=== PATIENT | male | born 1950 | race Asian ===

== ENCOUNTER → 2025-02-12 | Outpatient (CLI) | payer MEDICAID, SELFPAY ==
--- NOTE | 2025-02-12 08:45 | XR_ITS ---
EXAMINATION: PET/CT FUSION SKULL TO THIGH EXAM DATE AND TIME: February 12, 2025 0956 hours INDICATIONS: Diagnosis solitary pulmonary nodule posttreatment restaging CTDI:vol (mGy) 2.1 DLP: (mGycm) 191.83 PROCEDURE: 16.7 mCi FDG was administered intravenously To allow for distribution and uptake of radiotracer, the patient was allowed to rest quietly in a shielded room. Imaging was performed on an integrated 16-slice PET/CT scanner, with scanning from the skull base to the mid thigh. Serum blood glucose at the time of the injection was measured 99 mg/dL. CT scanning was performed without oral or intravenous contrast material. FINDINGS: Head and Neck: There is no joe hypermetabolism in the neck. The visualized portions of the brain are normal in appearance on CT. Chest: Hypermetabolic pulmonary nodule right upper lobe, spiculated margins, 16 mm Abdomen and Pelvis: There is no joe hypermetabolism in retroperitoneal or pelvic chains. The spleen is normal in size and FDG avidity. Musculoskeletal: Marrow uptake is within normal range. IMPRESSION: Non hypermetabolic 16mm pulmonary nodule right upper lobe, spiculated margins
== END | disposition home or self-care (01) ==
PROVIDERS: Referring Provider Physician Assistant; Visit Provider Physician Assistant
DX: R91.1 Solitary pulmonary nodule (principal)
CPT/HCPCS: 78815; A9552